=== PATIENT | female | born 1990 | race Caucasian/White ===

== ENCOUNTER 2017-02-14 17:45 | Inpatient (IN) ==
[2017-02-14] MEDS ORDERED: *HR* Morphine 2 MG/ML SYRINGE IVP ONE (22:03)
[2017-02-14] MEDS ORDERED: Ondansetron 4 MG/2 ML VIAL IVP PRN (22:39)
[2017-02-14] MEDS ORDERED: Naloxone 0.4 MG/ML INJ IVP PRN (22:39)
--- NOTE | 2017-02-14 22:50 | Internal Med History&Physical ---
Date of Encounter: 02/14/17 Time of Encounter: 22:45 Assessment and Plan (1) Tenosynovitis of finger and hand Current visit: Yes Status: Acute With abscess formation. Secondary to IV drug use. Failed outpatient therapy with oral clindamycin. Concern for MRSA however other skin susan and gram- negative rods will also be covered, will use vancomycin and Zosyn. No evidence of compartment syndrome. Blood cultures were drawn at outpatient Hospital and these will be followed up on. The hand surgeon will be consulted as the patient will likely need surgical incision and drainage. We will keep patient nothing by mouth. (2) IV drug abuse Current visit: Yes Status: Acute Patient reports daily heroin injections as well as use of prescription opiates, last use was this morning. (3) Hepatitis C Current visit: Yes Status: Acute Secondary to IV drug use Qualifiers: Viral hepatitis chronicity: chronic Hepatic coma status: without hepatic coma Qualified Code(s): B18.2 - Chronic viral hepatitis C (4) DVT prophylaxis Current visit: Yes Status: Acute Not indicated at this time due to the patient ambulating Internal Medicine - H&P: HPI Chief complaint: Swelling of hand Admitted From: Hospital to Hospital Transfer Plans for Post Hospital Care: Home History of present illness: Ms. Saunders is a 26 year old female with history of IV drug abuse and Hep C presents with swelling of the right hand. Patient states on she attempted to inject heroin but missed the vein. She then had swelling and redness of her hand on Wednesday and presented to [facility] where she received oral clindamycin. Despite this treatment the patient's pain and swelling and redness continued to get worse and over the weekend she developed an abscess. She denies drainage from the area, she reports fevers and chills, tightness of the skin of her hand and pain with movement of her hand or fingers. She denies any chest pain, shortness of breath, numbness, tingling. Past Med Surg Social Fam HX - Past Medical History Medical history: no medical history Psychiatric history: no psych history - Past Surgical History Surgical History: no surgical history - Social History Smoking Status: Current every day smoker Packs per day: 1 Smokeless Tobacco Status: No Alcohol use: none Drug use: opiates, IVDU (Daily) - Family History Father Hx Family Cardiac Disorders: Yes (HTN) Paternal Grandmother Hx Family Endocrine Disorder: Yes (Diabetes) Internal Medicine - H&P: Meds Allergies Penicillins [PCN] Allergy (Verified 06/12/15 15:27) Hives tramadol Allergy (Verified 02/14/17 20:02) Rash All Systems PM: A 10-system review of systems was performed and is negative for pertinent findings except as documented above in the HPI. Review of systems: 10 point review of systems was completed and is negative other than stated in the history of present illness. - Constitutional Vitals: Temp Pulse Resp BP Pulse Ox 98.4 F 68 15 102/67 99 02/14/17 19:57 02/14/17 19:57 02/14/17 19:57 02/14/17 19:57 02/14/17 19:57 General appearance: Present: A&O X 3, no acute distress - Eye Eye exam: Present: EOMI, PERRL - Respiratory Respiratory exam: Present: CTAB. Absent: rales, rhonchi, wheezes - Cardiovascular Cardiovascular exam: Present: RRR. Absent: gallop, rubs, systolic murmur - GI/Abdominal GI/Abdominal exam: Present: normal bowel sounds, soft. Absent: distended, tenderness - Extremities Exam Additional comments: There is erythema and inflammation throughout the entire right hand. There is discrete area of swelling and fluctuance over the first metacarpal right hand at the site of injection. There is pain with active and passive range of motion. Sensation is intact, radial pulses are present. There is no drainage noted. - Neurological Exam Neurological exam: Present: alert, CN II-XII intact, oriented X3, no focal deficits
[2017-02-14] MEDS ORDERED: Vancomycin 1,000 MG in D5% in Water 250 ML IVPB SCH (23:00)
--- NOTE | 2017-02-14 23:04 | Event Note ---
Date of Encounter: 02/14/17 Time of Encounter: 23:02 Patient seen and examined with medical sociologist. Patient presents with suspected abscess in the right-hand and surrounding cellulitis. Suspected tenosynovitis. Arterial pulsations intact. Sensations intact. 2 sets of blood cultures were performed at outside facility and will follow on them. Continue vancomycin and Zosyn. Orthopedic surgery has been contacted earlier and will follow the patient. We will keep patient NPO for possible intervention.
[2017-02-14] MEDS: 0.9 % Sodium Chloride 1,000 ML IVC SCH (23:18)
[2017-02-14 23:28] LABS: Basophils # 0.1 K/mcL (0.0-0.2); Basophils % 0.3 %; Eosinophils # 0.1 K/mcL (0.0-0.6); Eosinophils % 0.8 %; Hematocrit 41.8 % (35.3-44.9); Immature Granulocytes % 0.7 % (0-4); Lymphocytes # 2.9 K/mcL (0.6-4.6); Lymphocytes % 19.1 %; Mean Corpuscular HGB Conc 33.5 g/dL (31.6-35.5); Mean Corpuscular Volume 92.7 fL (83.0-100.0); Mean Platelet Volume 9.2 fL (9.4-12.4); Monocytes # 0.9 K/mcL (0.0-1.3); Monocytes % 5.7 %; Platelet Count 404 K/mcL (140-400); Red Blood Count 4.51 M/mcL (3.82-4.97); Red Cell Distribution Width 12.9 % (11.5-14.5); Segmented Neutrophils % 73.4 %
[2017-02-14] MEDS: Piperacillin/Tazobactam 3.375 GM in D5% in Water (Mini-Bag+) 100 ML IVPB SCH (23:29)
[2017-02-14 23:33] LABS: INR 1.2; Prothrombin Time 12.8 Seconds (9.4-12.1)
[2017-02-14] MEDS: Nicotine 21 MG PATCH.TD24 TD SCH (23:36)
[2017-02-14 23:40] LABS: BUN/Creatinine Ratio 9 (6-26); Blood Urea Nitrogen 7 mg/dL (7-20); Calcium 8.8 mg/dL (8.6-10.8); Carbon Dioxide 23 mEq/L (19-29); Chloride 107 mEq/L (98-109); Glucose 95 mg/dL (70-99); Osmolality,Calculated 286 (280-300); Potassium 3.9 mEq/L (3.5-4.5); Sodium 139 mEq/L (136-145); eGFR For African Americans > 60 (> 60); eGFR For Non-African Americans > 60 (> 60)
[2017-02-15] MEDS: *HR* Morphine 2 MG/ML SYRINGE IVP PRN ×7 (00:22→20:09)
[2017-02-15 04:38] LABS: Albumin 3.3 g/dL (3.5-5.0); Albumin/Globulin Ratio 0.9 (1.1-2.2); Bilirubin,Direct 0.3 mg/dL (0.0-0.5); Bilirubin,Indirect 0.3 mg/dL (0.0-1.2); Bilirubin,Total 0.6 mg/dL (0.2-1.2); Globulin 3.7 g/dL (2.4-3.5)
[2017-02-15] MEDS: Vancomycin 1,250 MG in D5% in Water 250 ML IVPB SCH ×2 (05:15→17:32)
[2017-02-15] MEDS: Piperacillin/Tazobactam 3.375 GM in D5% in Water (Mini-Bag+) 100 ML IVPB SCH ×2 (07:48→16:29)
[2017-02-15] MEDS: 0.9 % Sodium Chloride 1,000 ML IVC SCH ×2 (09:46→17:32)
[2017-02-15] MEDS: Nicotine 21 MG PATCH.TD24 TD SCH (10:21)
--- NOTE | 2017-02-15 14:05 | Orthopedic Consult Note ---
Date of Encounter: 02/15/17 Time of Encounter: 12:30 Assessment and Plan (1) Cellulitis Current Visit: Yes Status: Acute Right hand abscess on dorsal thumb developed secondary to cellulitis after heroin injection to this location. Performed bedside I&D I&D performed on the RIGHT dorsal hand over 1st MC. Informed consent was signed after explaining the risks and benefits of the procedure. Patient expressed understanding and all questions were answered. Area was prepped and draped in sterile fashion using hibiclense and anesthetized with 1% lidocaine. A total of 8ml was used. A scalpel was used to make an incision about half the length of the wound. Performed blunt dissection using hemostats to break up any loculations. Pressure was applied and copious, purulent drainage was expelled. Cultures were obtained and sent to pathology for testing. Wound was irrigated with saline. Iodoform packing material used to allow wound to continue to drain then sterile dressing applied to cover wounds. Continue to elevate and ice the RUE. Continue ROM of digits. Will re-evaluate and remove the packing tomorrow. Dressings to be left intact unless saturated then may be changed. Qualifiers: Site of cellulitis of extremity: upper extremity Laterality: right Qualified Code(s): L03.113 - Cellulitis of right upper limb History of Present Illness Chief complaint: right hand pain HPI: Ms. Saunders is a 26 year old female who started to notice redness and swelling to her right hand about 4 days ago after she admits to trying to inject heroin into the space between thumb and index finger. She went to an ER on 02/12/17 and was sent home with PO clindamycin for cellulitis. States the redness and swelling continued to worsen over the weekend. She returned to the ER last night and was admitted as the cellulitis had developed into abscess. States the pain is worse on top side of thumb, described as constant, sharp pains with pressure that radiates into hand and forearm. Pain worse with motion and better with rest. She has had trouble with hand and wrist motion secondary to pain and swelling. Denies any numbness or tingling. She did have fever and chills over the weekend but denies any now. Denies chest pain or SOB. She is right hand dominant. Past Med Surg Social Fam HX - Past Medical History Medical history: no medical history Psychiatric history: no psych history - Past Surgical History Surgical History: no surgical history - Social History Smoking Status: Current every day smoker Packs per day: 1 Smokeless Tobacco Status: No Alcohol use: none Drug use: opiates, IVDU (Daily) - Family History Father Hx Family Cardiac Disorders: Yes (HTN) Paternal Grandmother Hx Family Endocrine Disorder: Yes (Diabetes) Medications and Allergies No Known Home Drugs 02/15/17 [History] Allergies Penicillins [PCN] Allergy (Verified 02/15/17 11:33) Hives CHILDHOOD REACTION tramadol Allergy (Verified 02/15/17 11:33) Rash All Systems Reviewed: A 10-system review of systems was performed and is negative for pertinent findings except as documented above in the HPI. - Constitutional Constitutional: as per HPI - Cardiovascular Cardiovascular: as per HPI - Respiratory Respiratory: as per HPI - Musculoskeletal Musculoskeletal: as per HPI Physical Exam - Constitutional Vitals: Temp Pulse Resp BP Pulse Ox 98.1 F 67 18 117/73 96 02/15/17 10:26 02/15/17 10:26 02/15/17 10:26 02/15/17 10:26 02/15/17 10:26 - Wrist & Hand right Location of pain: dorsal hand (No open wounds to hands. Significant erythema and swelling noted on dorsal hand most localized over 1st MC with a fluctant area noted roughly 4cm in diameter. Significant tenderness to palpation of this area. No erythema to forearm or digits. No tenderness to palpation of the volar thumb along tendon sheath, thumb held in full extesion but able to obtain some flexion of all digits limited by swelling. Brisk cap refill. NV intact) Wrist pain modifiers: with motion Results - Labs Result Diagrams: 02/14/17 23:17 02/14/17 23:17 Labs: Abnormal lab results WBC 15.0 K/mcL (4.3-11.1) H 02/14/17 23:17 Plt Count 404 K/mcL (140-400) H 02/14/17 23:17 MPV 9.2 fL (9.4-12.4) L 02/14/17 23:17 Neutrophils # 11.0 K/mcL (1.6-8.9) H 02/14/17 23:17 ESR 40 mm/hr (0-15) H 02/15/17 04:11 PT 12.8 Seconds (9.4-12.1) H 02/14/17 23:17 ALT 60 Units/L (0-55) H 02/15/17 04:11 C-Reactive Protein 11 mg/L (Less than 5) H 02/15/17 04:11 Albumin 3.3 g/dL (3.5-5.0) L 02/15/17 04:11 Globulin 3.7 g/dL (2.4-3.5) H 02/15/17 04:11 Albumin/Globulin Ratio 0.9 (1.1-2.2) L 02/15/17 04:11 H & H 02/14/17 Range/Units 23:17 Hgb 14.0 (11.5-15.4) g/dL Hct 41.8 (35.3-44.9) % All other labs normal. Consult Discharge Plan - Plan Referrals: NO,PCP [Primary Care Provider] - - Attending Attestation Case and plan of care was discussed with the supervising physician who was available for all aspects of care.
[2017-02-15] MEDS ORDERED: Ketorolac 30 MG/ML VIAL IVP PRN (14:10)
--- NOTE | 2017-02-15 14:14 | Internal Med Progress Note ---
Date of Encounter: 02/15/17 Time of Encounter: 14:11 - Assessment and plan (1) Cellulitis Current Visit: Yes Status: Acute Assessment and plan: Acute cellulitis/abscess and tenosynovitis of the right hand status post incision and drainage by orthopedic surgery service Attempted to inject heroine in the affected area a few days ago Continue vancomycin and Zosyn day 2 Cultures sent Toradol and morphine as needed for pain Failed outpatient therapy with clindamycin provided at [facility] [place] [facility] [place] Qualifiers: Site of cellulitis of extremity: upper extremity Laterality: right Qualified Code(s): L03.113 - Cellulitis of right upper limb (2) Tenosynovitis of finger and hand Current Visit: Yes Status: Acute (3) IV drug abuse Current Visit: Yes Status: Acute (4) Hepatitis C Current Visit: Yes Status: Acute Qualifiers: Viral hepatitis chronicity: chronic Hepatic coma status: without hepatic coma Qualified Code(s): B18.2 - Chronic viral hepatitis C (5) Tobacco abuse Current Visit: Yes Status: Acute Assessment and plan: Smoking cessation counseling given for 5 minutes. Nicotine patch offered - Subjective Interval history: The patient sustained that she is complaining of severe pain over her right hand after having the abscesses drained. Denies any shortness of breath, no abdominal pain, no fevers or chills, no dysuria or diarrhea - Constitutional Vitals: Temp Pulse Resp BP Pulse Ox 98.1 F 67 18 117/73 96 02/15/17 10:26 02/15/17 10:26 02/15/17 10:26 02/15/17 10:26 02/15/17 10:26 General appearance: Present: A&O X 3, no acute distress - Head Head exam: Present: atraumatic, normocephalic - Eye Eye exam: Present: PERRL, conjuntiva pink, sclera anicteric Pupils: Present: PERRL - Neck Neck exam general surgery: Present: supple, trachea midline. Absent: lymphadenopathy - Respiratory Respiratory exam: Present: CTAB. Absent: accessory muscle use, rales, rhonchi, wheezes - Cardiovascular Cardiovascular exam: Present: RRR, +S1, +S2. Absent: diastolic murmur, gallop, rubs, systolic murmur - GI/Abdominal GI/Abdominal exam: Present: normal bowel sounds, soft, no peritoneal signs. Absent: distended, tenderness - Extremities Exam Extremities exam: Present: warm, radial pulses palpable and symetrical. Absent : calf tenderness, cyanotic, pedal edema - Neurological Exam Neurological exam: Present: CN II-XII intact, oriented X3, no focal deficits. Absent: pronater drift, facial droop, speech deficit - Skin Skin exam: Present: dry. Absent: intact (Severe erythema surrounding the area dorsum of the right hand, covered by dressing) Internal Medicine: Result - Labs CBC & Chem 7: 02/14/17 23:17 02/14/17 23:17 Labs: Short CBC 02/14/17 Range/Units 23:17 WBC 15.0 H (4.3-11.1) K/mcL Hgb 14.0 (11.5-15.4) g/dL Hct 41.8 (35.3-44.9) % Plt Count 404 H (140-400) K/mcL Neutrophils # 11.0 H (1.6-8.9) K/mcL BMP 02/14/17 23:17 Sodium 139 Potassium 3.9 Chloride 107 Carbon Dioxide 23 BUN 7 Creatinine 0.74 Glucose 95 Calcium 8.8 Liver Function 02/15/17 Range/Units 04:11 Total Bilirubin 0.6 (0.2-1.2) mg/dL Direct Bilirubin 0.3 (0.0-0.5) mg/dL AST 22 (5-34) Units/L ALT 60 H (0-55) Units/L Alkaline Phosphatase 79 (38-126) Units/L Albumin 3.3 L (3.5-5.0) g/dL - ABG Interpretation ABG results: PT/INR, D-dimer PT 12.8 Seconds (9.4-12.1) H 02/14/17 23:17 Consult Discharge Plan - Plan Referrals: NO,PCP [Primary Care Provider] -
[2017-02-16] MEDS: *HR* Morphine 2 MG/ML SYRINGE IVP PRN ×3 (00:26→08:57)
[2017-02-16] MEDS: Piperacillin/Tazobactam 3.375 GM in D5% in Water (Mini-Bag+) 100 ML IVPB SCH ×2 (00:26→08:51)
[2017-02-16] MEDS: 0.9 % Sodium Chloride 1,000 ML IVC SCH (06:10)
[2017-02-16 06:11] LABS: Hematocrit 38.9 % (35.3-44.9); Mean Corpuscular HGB Conc 33.4 g/dL (31.6-35.5); Mean Corpuscular Hemoglobin 30.6 pg (28.0-33.3); Mean Corpuscular Volume 91.5 fL (83.0-100.0); Mean Platelet Volume 9.2 fL (9.4-12.4); Platelet Count 370 K/mcL (140-400); Red Blood Count 4.25 M/mcL (3.82-4.97); Red Cell Distribution Width 12.9 % (11.5-14.5)
[2017-02-16 06:24] LABS: BUN/Creatinine Ratio 12 (6-26); Blood Urea Nitrogen 8 mg/dL (7-20); Calcium 8.9 mg/dL (8.6-10.8); Carbon Dioxide 19 mEq/L (19-29); Chloride 113 mEq/L (98-109); Glucose 98 mg/dL (70-99); Osmolality,Calculated 286 (280-300); Sodium 139 mEq/L (136-145); eGFR For African Americans > 60 (> 60); eGFR For Non-African Americans > 60 (> 60)
[2017-02-16] MEDS: Vancomycin 1,250 MG in D5% in Water 250 ML IVPB SCH (06:52)
[2017-02-16] MEDS: Nicotine 21 MG PATCH.TD24 TD SCH (08:51)
[2017-02-16] MEDS ORDERED: *HR* OxyCODONE/APAP 5/325 TABLET PO PRN (10:21)
[2017-02-16 11:06] VITALS: BP 116/74
[2017-02-16] MEDS ORDERED: Aminoglycoside Consult 1 EACH MC ONE (13:33)
--- NOTE | 2017-02-16 17:08 | Orthopedics Progress Note ---
Date of Encounter: 02/16/17 Time of Encounter: 12:30 - Assessment and Plan (1) Cellulitis Status: Acute s/p bedside I&D of right hand abscess 02/15/17 Packing removed from the incision today. Continues to have moderate erythema and swelling with some improvement. Incision was cleaned and patient instructed how to do proper local wound care. Begin washing with soap/water TID and reapply new dressings each time until the incision is healed. Continue to elevate and ice the RUE. Continue ROM of digits. Recommend continue IV abx overnight. Will need PO abx upon discharge based on cx results. Final wound cx pending. Gram negative rods. Will re-evaluate tomorrow. Qualifiers: Site of cellulitis of extremity: upper extremity Laterality: right Qualified Code(s): L03.113 - Cellulitis of right upper limb Subjective Principal diagnosis: right hand abscess Interval history: Patient doing well today. No events overnight. States pain has decreased some. motion has improved. States it drained a lot overnight but nurse did not have to change dressings. Denies any numbness. Objective Vital signs: Vital Signs Temp Pulse Resp BP Pulse Ox 02/16/17 11:05 98.8 F 83 17 116/74 98 02/16/17 08:05 98.1 F 69 16 112/73 100 02/16/17 07:04 98.1 F 56 18 104/62 94 02/16/17 00:00 98.5 F 80 16 117/76 96 02/15/17 20:29 98 F 82 16 120/84 99 Intake and Output 02/16/17 02/16/17 02/16/17 07:59 15:59 23:59 Intake Total 1350 / 1350 810 / 810 Output Total 0 / 0 Balance 1350 / 1350 810 / 810 Intake: IV Fluids 1350 / 1350 250 / 250 0.9 % Sodium Chloride 1, 1000 / 1000 000 ML @ 125 mls/hr IVC . Q8H [facility]AY[facility] Rx#:[id number] Zosyn 3.375 GM In 100 / 100 Dextrose 5% (Minibag+) 100 ML 100 ML @ 25 mls/hr IVPB Q8HR [facility] Rx#: [id number] Vancocin 1,250 MG In 250 / 250 250 / 250 Dextrose 5% 250 ML @ 166. 67 mls/hr IVPB Q12H [facility] Rx#:[id number] Oral 560 / 560 Output: Urine 0 / 0 Other: Meal Lunch Percent of Meal Consumed 0% # Voids 6 2 Weight 59.6 kg Patient Weight 02/16/17 23:59 Weight 59.6 kg Incision: draining (Incision to dorsal right hand has small amount active drainage on exam with moderate erythema with little improvement since yesterday. Moderate swelling with some improvement. ROM of fingers and wrist has improved but still limited due to swelling. NV intact. brisk cap refill.) - Labs CBC & BMP: 02/16/17 06:04 02/16/17 06:04 Labs: Abnormal lab results MPV 9.2 fL (9.4-12.4) L 02/16/17 06:04 Neutrophils # 11.0 K/mcL (1.6-8.9) H 02/14/17 23:17 ESR 40 mm/hr (0-15) H 02/15/17 04:11 PT 12.8 Seconds (9.4-12.1) H 02/14/17 23:17 Chloride 113 mEq/L (98-109) H 02/16/17 06:04 ALT 60 Units/L (0-55) H 02/15/17 04:11 C-Reactive Protein 11 mg/L (Less than 5) H 02/15/17 04:11 Albumin 3.3 g/dL (3.5-5.0) L 02/15/17 04:11 Globulin 3.7 g/dL (2.4-3.5) H 02/15/17 04:11 Albumin/Globulin Ratio 0.9 (1.1-2.2) L 02/15/17 04:11 Consult Discharge Plan - Plan Additional Instructions: Wash incision with soap and water 3xday and apply new dressings each time until incision is completely healed. Continue to ice and elevate hand. Continue motion of hand and wrist. Referrals: NO,PCP [Primary Care Provider] -
--- NOTE | 2017-02-16 17:35 | Event Note ---
Date of Encounter: 02/16/17 Time of Encounter: 17:35 bryon signed out AMA before bryon could be seen and examined.
[2017-02-17] MEDS ORDERED: *HR* Enoxaparin 40 MG/0.4 ML SYRINGE SQ SCH (06:00)
== END 2017-02-16 13:34 | disposition left against medical advice (07) | DRG 316 ==
LOC: 3NENU → 3ANU 02-16 07:57
PROVIDERS: ADMIT Hospitalist; ATTEND Internal Medicine